=== PATIENT | male | born 1950 | race Caucasian/White ===

== ENCOUNTER 2018-02-28 08:21 | Emergency (ER) | payer MEDICARE ==
[2018-02-28] MEDS ORDERED: Bacitracin Oint 1 GM U/D Packet TOP ONE (08:50)
--- NOTE | 2018-02-28 08:53 | EDM.PDOC ---
ED HPI GENERAL MEDICAL PROBLEM - General Chief Complaint: Laceration Stated Complaint: CUT ON PT'S FOREHEAD Time Seen by Provider: 02/28/18 08:43 Source of Information: Reports: Patient History Limitations: Reports: No Limitations - History of Present Illness INITIAL COMMENTS - FREE TEXT/NARRATIVE: History of present illness: []Patient is packing up with a motor home and ran into the outside on a cutting his forehead prior to arrival. Patient denies any loss of consciousness and has no headache, visual changes, nausea, vomiting or neck pain. His last tetanus shot was within 5 years Review of systems: As per history of present illness and below otherwise all systems reviewed and negative. Past medical history: As per history of present illness and as reviewed below otherwise noncontributory. Surgical history: As per history of present illness and as reviewed below otherwise noncontributory. Social history: No reported history of drug or alcohol abuse. Family history: As per history of present illness and as reviewed below otherwise noncontributory. Physical exam: General: Well developed, well nourished in NAD HEENT: 1 cm vertical superficial laceration on his middle superior forehead without any active bleeding, normocephalic, pupils reactive, negative for conjunctival pallor or scleral icterus, mucous membranes moist, throat clear, neck supple, nontender, trachea midline. Lungs: Clear to auscultation, breath sounds equal bilaterally, chest nontender. Heart: S1S2, regular, negative for clicks, rubs, or JVD. Abdomen: Soft, nondistended, nontender. Negative for masses or hepatosplenomegaly. Negative for costovertebral tenderness. Pelvis: Stable nontender. Genitourinary: Deferred. Rectal: Deferred. Extremities: Atraumatic, negative for cords or calf pain. Neurovascular unremarkable. Neuro: Awake, alert, oriented. Cranial nerves II through XII unremarkable. Cerebellum unremarkable. Motor and sensory unremarkable throughout. Exam nonfocal. Diagnostics: [] Therapeutics: []Wound cleaned and dressed with bacitracin and bandage Impression: []Forehead laceration Plan: []Change dressing twice a day hold pressure if any recurring bleeding occurs and return to ER if needed. Definitive disposition and diagnosis as appropriate pending reevaluation and review of above. - Related Data Allergies Allergy/AdvReac Type Severity Reaction Status Date / Time No Known Allergies Allergy Verified 02/28/18 08:39 Home Meds: Home Meds Aspirin [Halfprin] 3 tab PO DAILY 02/28/18 [History] Calcium Carbonate [Calcium] 1 tab PO DAILY 02/28/18 [History] Cholecalciferol (Vitamin D3) [Vitamin D] 1 tab PO DAILY 02/28/18 [History] Glucosamine HCl [Glucosamine] 1 tab PO DAILY 02/28/18 [History] Hydrochlorothiazide 1 tab PO DAILY 02/28/18 [History] Lisinopril 1 tab PO DAILY 02/28/18 [History] Metoprolol Succinate [Toprol XL 50mg] 1.5 tab PO DAILY 02/28/18 [History] Multivitamin [Multivitamins] 1 tab PO DAILY 02/28/18 [History] Davenport-3/DHA/Epa/Fish Oil [[place] 3 500 Softgel] 1 tab PO DAILY 02/28/18 [History] Rosuvastatin [Crestor] 1 tab PO DAILY 02/28/18 [History] ED ROS GENERAL - Review of Systems Review Of Systems: See Below (See history of present illness) ED EXAM, SKIN/RASH Exam: See Below (See history of present illness) Course - Orders/Labs/Meds Orders: Active Orders 24 hr Category Date Time Status Bacitracin [Bacitracin Oint 1 GM] Med 02/28/18 08:50 Once 1 dose TOP ONETIME ONE Departure - Departure Time of Disposition: 08:52 Disposition: Home, Self-Care 01 Condition: Good Clinical Impression: Forehead laceration Qualifiers: Encounter type: initial encounter Qualified Code(s): S01.81XA - Laceration without foreign body of other part of head, initial encounter - Discharge Information Referrals: PCP,None [Primary Care Provider] - Additional Instructions: The following information is given to patients seen in the emergency department who are being discharged to home. This information is to outline your options for follow-up care. We provide all patients seen in our emergency department with a follow-up referral. The need for follow-up, as well as the timing and circumstances, are variable depending upon the specifics of your emergency department visit. If you don't have a primary care physician on staff, we will provide you with a referral. We always advise you to contact your personal physician following an emergency department visit to inform them of the circumstance of the visit and for follow-up with them and/or the need for any referrals to a consulting specialist. The emergency department will also refer you to a specialist when appropriate. This referral assures that you have the opportunity for follow-up care with a specialist. All of these measure are taken in an effort to provide you with optimal care, which includes your follow-up. Under all circumstances we always encourage you to contact your private physician who remains a resource for coordinating your care. When calling for follow-up care, please make the office aware that this follow-up is from your recent emergency room visit. If for any reason you are refused follow-up, please contact the [facility] at and asked to speak to the emergency department charge nurse. [facility] [address] [place] [id number] - My Orders Last 24 Hours: My Active Orders 02/28/18 08:50 Bacitracin [Bacitracin Oint 1 GM] 1 dose TOP ONETIME ONE - Assessment/Plan Last 24 Hours: My Active Orders 02/28/18 08:50 Bacitracin [Bacitracin Oint 1 GM] 1 dose TOP ONETIME ONE
== END 2018-02-28 09:03 | disposition home or self-care (01) ==
LOC: MW.ED 08:21
DX: S01.81XA Laceration without foreign body of other part of head, initial encounter (principal); Z79.82 Long term (current) use of aspirin; W22.8XXA Striking against or struck by other objects, initial encounter
CPT/HCPCS: 99282